=== PATIENT | male | born 1970 | race Caucasian/White ===

== ENCOUNTER 2022-03-16 20:54 | Emergency (ER) | payer MEDICAID, SELFPAY ==
[2022-03-16 21:06] VITALS: BP 150/83; PULSE 80; RESP 18; TEMP 36.7; O2SAT 99; BMI 35.1
--- OUTSIDE RECORDS SUMMARY | 2022-03-16 22:36 | XMS_ITS | Clinical Summary ---
:1970 Author Organization [facility] [place] [address] Care Team Providers Name Role Phone Jero Jeffers MD Primary Care Provider Allergies No known active allergies Medications Medication Sig Dispensed Refills Start Date End Date Status citalopram (CELEXA) Take 20 mg by mouth 0 Active 20 mg once daily. tabletIndications: Indications: depression associated DEPRESSION with bipolar disorder ASSOCIATED WITH BIPOLAR DISORDER ARIPIPRAZOLE (ABILIFY Take by mouth. 0 Active ORAL) divalproex (DEPAKOTE Take 1,500 mg by 0 Active ER) 500 mg mouth once daily. Extended-Release Indications: tabletIndications: BIPOLAR DISORDER IN bipolar disorder in REMISSION remission lisinopril (PRINIVIL; Take 40 mg by mouth 0 04/02/20 19 Active ZESTRIL) 40 mg tablet once daily. JANTOVEN 5 mg tablet 0 04/24/2019 Active Active Problems Problem Noted Date Bipolar I disorder, most recent episode (or current) d epressed, in full 12/31/2007 remission Bipolar I disorder, most recent episode (or current) u nspecified 08/12/2005 Depressive disorder, not elsewhere classified 05/23/19 06 Overview: ATYPICAL / ? BIPOLAR HX SUICIDAL IDEATIO N 07/06 Cervicalgia 05/23/2005 Immunizations Name Administration Dates Next Due Pneumococcal Poly,23-Valent (Pneumovax) 04/09/2014 Tdap 02/28/2012 Family History Medical History Relation Name Comments Arthritis Father GI Disease Father PUD Cancer Maternal Grandfather Cancer-colon Maternal Grandmother Asthma Mother Hypertension Mother Cancer Paternal Grandfather Diabetes Paternal Grandmother Good Health Sister 1 Good Health Sister 2 Relation Name Status Comments Father Alive Maternal Grandfather Maternal Grandmother Mother Alive Paternal Grandfather Paternal Grandmother Sister 1 Sister 2 Social History Tobacco Use Types Packs/Day Years Used Date Smoking Tobacco: Every Day Cigarettes 0.5 S tarted: 04/03/1985 Smokeless Tobacco: Never Tobacco Cessation: Ready to Quit: Yes; C ounseling Given: Yes Alcohol Use Standard Drinks/Week Comments Yes 0 (1 standard drink = 0.6 oz pure alcoho l) Sex Assigned at Date Recorded Not on file Obstetrics History Last Filed Vital Signs Vital Sign Reading Time Taken Comments Blood Pressure 124/80 05/06/2019 2:42 PM [employer] Pulse 72 05/06/2019 2:42 PM [employer] Temperature 36.7 ??C (98.1 ??F) 11/02/2015 1:52 PM CDT Respiratory Rate 18 05/06/2019 2:42 PM [employer] Oxygen Saturation 93% 11/02/2015 4:00 PM CDT Inhaled Oxygen Concentration - - Weight 107.9 kg (237 lb 12.8 oz) 05/06/2019 2:42 PM [employer] Height 177 cm (5' 9.69) 05/06/2019 2:42 PM [employer] Body Mass Index 34.43 05/06/2019 2:42 PM TOBACCO SAMPLE P[employer]ER Plan of Treatment Health Maintenance Due Date Last Done Comments COVID-19 vaccine series (#1) 1971 Depression screening for age 12+ 1983 HIV for age 15-65 1986 Hepatitis C screening for age 1203/07/1989 18-79 Colonoscopy through age 75 2016 Lipids for age 45-75 2016 05/15/2007, 03/30/2006, 03/30/2006, Additional history exists BMI (ht and wt on same day) for 05/06/2020 05/06/2019, 08/0 04/2015 age 18+ Zoster (shingles) series for age 1203/07/2021 50+ (1 of 2) Influenza for age 50-64 12/02/2021 Tetanus booster 02/27/2022 02/28/2012 Tdap Completed 02/28/2012 Results Not on filefrom Last 3 Months Care Teams Net Programmer Analyst Relationship Specialty Start Date End Date Jero Jeffers MD PCP - General Family Practice 11/02/15
[2022-03-16 22:58] LABS: Basophils Absolute Auto 0.03 K/uL (0.00-0.30); Basophils Percent Auto 0.3 % (0.0-3.0); Eosinophils Absolute Auto 0.15 K/uL (0.00-0.50); Eosinophils Percent Auto 1.7 % (0.0-7.0); Hematocrit 39.9 % (37.0-53.0); Hemoglobin* 13.7 gm/dL (13.5-17.5); Immature Granulocytes Abs Auto 0.04 K/uL (0.00-0.30); Immature Granulocytes Pct Auto 0.4 %; Lymphocytes Absolute Auto 3.43 K/uL (0.90-2.90); Lymphocytes Percent Auto 37.9 % (20-44); Mean Corpuscular HGB Conc 34 gm/dL (32-36); Mean Corpuscular Hemoglobin 31 pg (26-34); Mean Corpuscular Volume 91 fL (80-100); Monocytes Percent Auto 10.8 % (0.0-11.0); Neutrophils Absolute Auto 4.43 K/uL (1.7-7.0); Neutrophils Percent Auto 48.9 % (42.0-72.0); Platelet Count* 170 K/uL (140-440); RDW Coefficient of Variation % 13.9 % (11.5-15.5); White Blood Count* 9.06 K/uL (4.50-11.00)
[2022-03-16 23:05] LABS: Slide Review Reflex No
[2022-03-16 23:11] LABS: Chloride* 109 mmol/L (96-114); Sodium* 142 mmol/L (135-149)
[2022-03-16 23:12] LABS: Potassium* 3.9 mmol/L (3.6-5.1)
[2022-03-16 23:14] LABS: Creatinine* 0.7 mg/dL (0.5-1.5); Est. Creatinine Clearance* 132.97; Estimated Glomerular Filt Rate 112 ml/min
[2022-03-16 23:15] LABS: Blood Urea Nitrogen* 21 mg/dL (7-30); Calcium* 8.7 mg/dL (8.4-10.6); Carbon Dioxide* 26 mmol/L (20-32); Glucose* 95 mg/dL (60-115)
[2022-03-16 23:20] LABS: C Reactive Protein* < 0.5 mg/dL (0.5-1.0)
[2022-03-16 23:37] VITALS: BP 150/83; PULSE 80; RESP 18; TEMP 36.7
[2022-03-16 23:49] VITALS: BP 132/78; PULSE 79; RESP 18; TEMP 36.6; O2SAT 99
--- NOTE | 2022-03-17 00:15 | ED.GIBLEED ---
HPI - GI Bleed General Chief complaint: GI Bleed Stated complaint: Rectal Bleeding Time Seen by Provider: 03/16/22 21:08 History of Present Illness HPI Narrative: 52-year-old man presenting to the emergency department with concern of rectal bleeding. 3 small clots with wiping on bm today. unusual urge to have evening bm. last weekend partied. no regular excessive alcohol. Is not having abdominal pain at this time. Been no fever. No diarrhea. No shortness of breath or lightheadedness. Does not know himself to have a history of hemorrhoids. does have a history of pulmonary embolus and is anticoagulated with Coumadin. Related Data Home Medications Medication Instructions Recorded Confirmed citalopram 20 mg tablet 20 mg PO DAILY 12/03/21 03/17/22 lisinopril 40 mg tablet 40 mg PO DAILY 12/03/21 03/17/22 Previous Rx's Medication Instructions Recorded aripiprazole 30 mg tablet 30 mg PO QDAY #30 tabs 11/28/21 divalproex 500 mg tablet,delayed 2,500 mg PO DAILY #150 tabs 11/28/21 release warfarin 5 mg tablet (Jantoven) See Rx Instructions .Route 01/31/22 .COMPLEX #120 tabs peg 3350-electrolytes 236 240 ml PO Q10M #4,000 mL 03/17/22 gram-22.74 gram-6.74 gram-5.86 gram solution (Golytely) Allergies Allergy/AdvReac Type Severity Reaction Status Date / Time No Known Allergies Allergy Unknown Unverified 03/18/22 11:24 Review of Systems Status of ROS: Reports: 6 or more systems reviewed and unremarkable except as noted in History and below [facility] Medical History (Updated 03/17/22 @ 02:04 by Feliciano Jonas RN) Anxiety Bipolar disorder Gout H/O deep venous thrombosis HTN (hypertension) Lung nodule Osteoarthritis of knee Pulmonary embolism Sleep apnea Tobacco abuse Family History Other Diabetes Social History Smoking Status: Current every day smoker What tobacco products do you use: cigarettes Second hand tobacco smoke exposure: No How often do you have a drink containing alcohol: never How often do you have six or more drinks on one occasion: Never AUDIT-C Alcohol total score: 0 Non-prescribed substance use: denies use Exam Narrative: Exam Narrative: Pleasant. NAD. Jerry complected. Seems just a little bit distracted maybe tired. Breathing easily. Lungs are clear. Cardiovascular with regular rate and rhythm. Cranial nerves 2-12 look to be intact. Abdomen is soft little overweight nontender. Extremities without edema. Well perfused. I return to do an anoscopy exam. There is evidence of bright red bleeding on the anal tissue. Anoscopy exam though does not reveal any further bleeding nor any hemorrhoids. No indication of a fissure either. Const: Vital Signs, click to edit/add: Vital Signs - 24 hr 03/16/22 21:06 03/16/22 23:37 03/16/22 23:49 Temperature 98.0 F 98.0 F 97.9 F Pulse Rate [Right Pulse Oximeter] 80 80 79 Respiratory Rate 18 18 18 Blood Pressure [Ri ght Upper Arm] 150/83 H 150/83 H 132/78 Pulse Oximetry 99 99 Oxygen Delivery Me thod Room Air Room Air Documenting provider has reviewed patient's vital signs: yes Course Vital Signs Vital signs: Initial Vital Signs Temperature 98.0 F 03/16/22 21:06 Temperature Source Temporal Artery Scan 03/16/22 21:06 Pulse Rate 80 03/16/22 21:06 Respiratory Rate 18 03/16/22 21:06 Blood Pressure 150/83 H 03/16/22 21:06 Blood Pressure Mean 105 03/16/22 21:06 Blood Pressure Position Sitting 03/16/22 21:06 Pulse Oximetry 99 03/16/22 21:06 Oxygen Delivery Method 03/16/22 21:06 Vital Signs Temperature 98.0 F 03/16/22 21:06 Pulse Rate 80 03/16/22 21:06 Respiratory Rate 18 03/16/22 21:06 Blood Pressure 150/83 H 03/16/22 21:06 Pulse Oximetry 99 03/16/22 21:06 Oxygen Delivery Method 03/16/22 21:06 Temperature 97.9 F 03/16/22 23:49 Pulse Rate 79 03/16/22 23:49 Respiratory Rate 18 03/16/22 23:49 Blood Pressure 132/78 03/16/22 23:49 Pulse Oximetry 99 03/16/22 23:49 Oxygen Delivery Method 03/16/22 23:49 MDM - GI Bleed MDM Narrative Medical decision making narrative: Basic labs are completed. Reassuring hemoglobin at 13.7 and an INR was 1.8. This would be presumably a little subtherapeutic but given bleed here I think will let this go at the moment. Close follow-up. Was observed in the emergency department without further episodes of bleeding. No pain. Medical Records Attestation: I reviewed the patient's medical records. Lab Data Attestation: I reviewed the patient's lab results. Labs: Lab Results 03/16/22 03/16/22 Range/Units 22:50 22:50 WBC 9.06 (4.50-11.00) K/uL RBC 4.40 (4.30-5.90) m/uL Hgb 13.7 (13.5-17.5) gm/dL Hct 39.9 (37.0-53.0) % MCV 91 (80-100) fL MCH 31 (26-34) pg MCHC 34 (32-36) gm/dL RDW Coeff of Kaz 13.9 (11.5-15.5) % Plt Count 170 (140-440) K/uL Neut % (Auto) 48.9 (42.0-72.0) % Lymph % (Auto) 37.9 (20-44) % [place] % (Auto) 10.8 (0.0-11.0) % Eos % (Auto) 1.7 (0.0-7.0) % Baso % (Auto) 0.3 (0.0-3.0) % Neut # (Auto) 4.43 (1.7-7.0) K/uL Lymph # (Auto) 3.43 H (0.90-2.90) K/uL [place] # (Auto) 1.00 H (0.00-0.90) K/UL Eos # (Auto) 0.15 (0.00-0.50) K/uL Baso # (Auto) 0.03 (0.00-0.30) K/uL Abs Immat Gran (auto) 0.04 (0.00-0.30) K/uL Imm/Tot Granulo (auto) 0.4 % Sodium 142 (135-149) mmol/L Potassium 3.9 (3.6-5.1) mmol/L Chloride 109 (96-114) mmol/L Carbon Dioxide 26 (20-32) mmol/L BUN 21 (7-30) mg/dL Creatinine 0.7 (0.5-1.5) mg/dL Estimated Creat Clear 132.97 Estimated GFR 112 ml/min Glucose 95 (60-115) mg/dL Calcium 8.7 (8.4-10.6) mg/dL C-Reactive Protein < 0.5 L (0.5-1.0) mg/dL Discharge Plan Discharge Clinical Impression: Acute lower GI bleeding Patient Disposition: Home, Self-Care Condition: Stable Additional Instructions: Stay well-hydrated. I would take it easy with your diet over the next 36 hours. Maybe stick to things like diluted juices, soup broths advancing to thicker soups and maybe smoothies. Rice. Shorter. It is possible you might past few more small clots. That is okay. Return though for real increase in bleeding, marked increase in abdominal pain, associated fever, repeated vomiting, associated lightheadedness. I would follow-up though in primary care otherwise to get this colonoscopy scheduled as soon as possible. Prescriptions: No Action lisinopril 40 mg tablet 40 mg PO DAILY citalopram 20 mg tablet 20 mg PO DAILY divalproex 500 mg tablet,delayed release (DR/EC) 2,500 mg PO DAILY Qty: 150 11RF aripiprazole 30 mg tablet 30 mg PO QDAY Qty: 30 11RF warfarin [Jantoven] 5 mg tablet See Rx Instructions .ROUTE .COMPLEX Qty: 120 3RF Dose Instruction: SUN 7.5 MG, MONDAY 5MG, MON 7.5MG, MON 7.5MG, TH 7.5MG, MON 5MG, SAT 7.5 MG Rx Instructions: SUN 7.5 MG, MONDAY 5MG, MON 7.5MG, MON 7.5MG, THUR 7.5MG, FRI 5MG, SAT 7.5 MG peg 3350-electrolytes [Golytely] 236-22.74-6.74 -5.86 gram recon soln 240 ml PO Q10M Qty: 4000 0RF Rx Instructions: until fecal effluent is clear Follow Up/Referrals: Jero Jeffers MD [Primary Care Provider] - Stand Alone [facility]
== END 2022-03-16 23:40 | disposition home or self-care (01) ==
PROVIDERS: Emergency Provider Family Medicine; PCP Family Medicine
DX: K62.5 Hemorrhage of anus and rectum (principal); Z86.711 Personal history of pulmonary embolism; Z79.01 Long term (current) use of anticoagulants
CPT/HCPCS: 36415; 80048; 85025; 86140; 99283; 99284

== ENCOUNTER 2022-04-05 11:34 | Outpatient (CLI) | payer MEDICAID, SELFPAY | END 2022-04-05 11:35 | disposition home or self-care (01) | LOC: OP CLINIC 11:35 | PROVIDERS: PCP Family Medicine; Visit Provider Surgery | DX: K92.1 Melena (principal); K64.8 Other hemorrhoids; K62.89 Other specified diseases of anus and rectum | CPT/HCPCS: 36415; 45380; 85610; 88305; 99153; J2250; J3010 ==

== ENCOUNTER 2022-07-22 08:31 | Outpatient (CLI) | payer MEDICAID, SELFPAY | END 2022-07-22 08:32 | disposition home or self-care (01) | PROVIDERS: PCP Family Medicine; Visit Provider Family Medicine | DX: Z00.00 Encounter for general adult medical examination without abnormal findings (principal); I10 Essential (primary) hypertension; Z13.6 Encounter for screening for cardiovascular disorders; Z12.5 Encounter for screening for malignant neoplasm of prostate | CPT/HCPCS: 80061; 84153 ==

== ENCOUNTER 2022-09-28 09:53 | Outpatient (CLI) | payer MEDICAID, SELFPAY | END 2022-09-28 09:54 | disposition home or self-care (01) | LOC: NFLDREF 09-29 07:43 | PROVIDERS: PCP Family Medicine; Referring Provider Family Medicine; Visit Provider Family Medicine | DX: Z86.718 Personal history of other venous thrombosis and embolism (principal) | CPT/HCPCS: 85610 ==

== ENCOUNTER 2022-10-21 15:11 | Outpatient (CLI) | payer MEDICAID, SELFPAY | END 2022-10-21 15:12 | disposition home or self-care (01) | LOC: LONREF 15:15 | PROVIDERS: PCP Family Medicine; Visit Provider Family Medicine | DX: Z01.818 Encounter for other preprocedural examination (principal) | CPT/HCPCS: 80048 ==

== ENCOUNTER 2022-11-15 11:07 | Day surgery (SDC) | payer MEDICAID, SELFPAY ==
[2022-11-15] VITALS (7 sets, daily range): BP systolic 105–122; BP diastolic 67–85; PULSE 48–59; RESP 16; TEMP 36.1–37; O2SAT 96–98; BMI 35.6
[2022-11-15] MEDS: SODIUM CHLORIDE 0.9 % (FLUSH) 10 ML SYRINGE IVF (11:40)
[2022-11-15] MEDS: LACTATED RINGERS 1000 ML 1,000 ML 100 ML IV (11:40)
[2022-11-15] MEDS: CEFAZOLIN 2 GM INJ IVP (13:02)
[2022-11-15] MEDS: BUPIVACAINE 0.25% 30 ML INJECTION (13:10)
--- NOTE | 2022-11-15 13:35 | P.GSOP_ITS ---
Operative Note Pre-op diagnosis: 1. Recurrent right periductal mastitis. Post-op diagnosis: 1. Right periductal mastitis with an abscess. Type of Procedure: 1. Excision of right nipple areolar complex with partial closure. Indications: 52-year-old male smoker was seen in clinic multiple times with right periductal mastitis. He completed several courses of antibiotics. He initially underwent aspiration of a magdalena areolar abscess with minimal amount of purulent drainage aspirated. Patient's infection initially improved with antibiotics but never went away and recurred multiple times. On clinical exam patient had induration just medial to the right nipple with faint erythema. There was no obvious abscess noted. Given patient's clinical history and his recurrent episodes of mastitis, radial excision of the nipple and areola versus excision of nipple- areolar complex were all discussed with the patient. The procedures were discussed in detail. The risks associated procedures including infection, recurrence of symptoms, and bleeding were discussed with the patient, and he agreed to proceed with excision of nipple-areolar complex. Procedure Description: After discussing the risks and benefits of the procedure, the patient signed informed consent.? The operative site was marked and the patient was brought to the operating room and placed on the operating table in supine position.? Care was taken to pad the patient's pressure points.?? The patient was then sedated by anesthesia.?? The operative site was then prepped and draped in the usual sterile fashion.? A time-out was then performed. Local anesthetic was injected around the right nipple-areolar complex. A horizontal elliptical skin incision was made with a scalpel around the nipple- areolar complex. Dermis was divided with cautery. This dissection was carried down to the breast fat. Purulence was noted to come out at the inferior edge of the incision. This was approximately 1 mL. The nipple-areolar complex with associated abscess was then excised with cautery. The margins were inked for orientation and the right nipple-areolar complex was sent to pathology. The incision was irrigated with normal saline. Additional local anesthetic was injected in the incision. Skin flaps were developed superiorly and inferiorly. The breast tissue was then reapproximated with interrupted 2-0 Vicryl sutures. The dermis was then reapproximated with interrupted 3-0 Vicryl sutures. The medial 1.5 cm of the surgical incision was left open. The skin of the remainder of the incision was closed with a running 4-0 Monocryl stitch. The open part of the surgical incision medially was then packed with iodoform Nu Gauze. The incision was covered with sterile gauze and tape. ? The patient was then woken and transported to the recovery area in stable condition. ? The patient tolerated the procedure well. Findings: Periductal mastitis with associated small abscess. Anesthesia: GETA Surgeon: Julianna Connor MD Estimated blood loss (mL): 5 Additional Specimen Information: 1. Right nipple-areolar complex. Condition: stable Disposition: same day
--- NOTE | 2022-11-15 13:45 | W.ANESCHARGE ---
Anesthesia Charges Start Date/Time Anesthesia Start Date: 11/15/22 Anesthesia Start Time: 12:53 Stop Date/Time Anesthesia Stop Date: 11/15/22 Anesthesia Stop Time: 13:39
--- NOTE | 2022-11-15 13:51 | W.ANESCHARGE ---
Anesthesia Charges Start Date/Time Anesthesia Start Date: 11/15/22 Anesthesia Start Time: 12:53 Stop Date/Time Anesthesia Stop Date: 11/15/22 Anesthesia Stop Time: 13:39
== END 2022-11-15 14:40 | disposition home or self-care (01) ==
PROVIDERS: PCP Family Medicine; Visit Provider Surgery
PROC: (CPT 19120; principal; 2022-11-15 12:30)
DX: N61.1 Abscess of the breast and nipple (principal)
CPT/HCPCS: 19120; 400; 88307; J0665; J0690; J1100; J2250; J2405; J2704; J3010; J3490; J7120

== ENCOUNTER 2023-07-21 20:57 | Emergency (ER) | payer MEDICAID, SELFPAY ==
[2023-07-21 21:03] VITALS: BP 138/85; PULSE 75; RESP 16; TEMP 36.4; O2SAT 98; BMI 35.6
--- NOTE | 2023-07-21 21:13 | ED.GENADULT ---
HPI - General Adult General Chief complaint: Abdominal Pain Stated complaint: Abdominal pain Time Seen by Provider: 07/21/23 21:02 History of Present Illness HPI narrative: nausea and loose stools all week, about 1 hour ago burped up stomach acid, that was bright red and bloody denies hx of similar events, denies hx bleeding ulcers . patient takes warfarin for hx of DVT/PE. patient reports he may have had a fever monday because he was feeling chills, today denies fevers. patient denies lavon bleeding in stools but has been taking Pepto so his stool are black . reports generalized discomfort in abd. Feels kind of queasy denies any localized pain. 53-year-old man presenting to the emergency department with concern of abdominal pain. Does appear though that primary concern was that he had burped up some ?red and bloody? stomach content. He is worried he might have an ulcer. He is still nauseated. Has actually been having loose diarrheal stools throughout this week. No melena or hematochezia although did take some Pepto resulting in some dark stool. No fever. No rashes. Does take Coumadin with a history of DVT. On measured temperature at least 3 days ago when he felt chilled. No shortness of breath. Related Data Previous Rx's Medication Instructions Recorded enoxaparin 30 mg/0.3 mL 30 mg (0.3 mL) subcut Q12H #6 mL 10/26/22 subcutaneous syringe (Lovenox) aripiprazole 30 mg tablet 30 mg PO QDAY #30 tabs 11/29/22 divalproex 500 mg tablet,delayed 2,500 mg (5 x 500 mg) PO DAILY 11/29/22 release #150 tabs citalopram 20 mg tablet 20 mg PO QDAY #90 tabs 04/04/23 lisinopril 40 mg tablet 40 mg PO DAILY #90 tabs 04/19/23 warfarin 5 mg tablet See Rx Instructions PO .COMPLEX 04/19/23 #90 tabs Allergies Allergy/AdvReac Type Severity Reaction Status Date / Time No Known Allergies Allergy Unknown Verified 03/10/23 13:07 Review of Systems Status of ROS: Reports: 6 or more systems reviewed and unremarkable except as noted in History and below [facility] Medical History Mastitis ?N61.0 - Mastitis without abscess (ICD-10) Lung nodule ?R91.1 - Solitary pulmonary nodule (ICD-10) Surgical History S/P breast biopsy, right ?Z98.890 - Other specified postprocedural states (ICD-10) Family History Other Diabetes Social History What is your current living situation?: I presently have a place to live Problems where you live: no known problems Problems where you live details: NA In the past 12 months, utilities in danger of being shut off: no In past 12 months, lack of transportation kept you from medical appts, meetings, work, or getting things needed for daily living: no In the past 12 mos, have been you worried that your food would run out before you had money to buy more?: never true In the past 12 mos, the food you bought just didn't last and you didn't have money to buy more?: never true Highest level of school completed/degree received: some college, no degree Smoking Status: Current every day smoker What tobacco products do you use: cigarettes Smoking packs per day: 0.5 Smoking cigarettes per day: 10.0 Years smoked: 35 Smoking pack-years: 17.50 Do you use any of these nicotine containing products: None Second hand tobacco smoke exposure: Yes How often do you have a drink containing alcohol: 4 or more times a week Alcohol type: beer How many standard drinks containing alcohol do you have on a typical day: 1 or 2 How often do you have six or more drinks on one occasion: Never AUDIT-C Alcohol total score: 4 Non-prescribed substance use: denies use Caffeine: Yes (COFFEE) How often does anyone, including family, friends and others, physically hurt you: never How often does anyone, including family, friends and others, insult or talk down to you: never How often does anyone, including family, friends and others, threaten you with harm: never How often does anyone, including family, friends and others, scream or curse at you: never Little interest or pleasure in doing things: several days Feeling down, depressed, or hopeless: not at all service: No Exam Narrative: Exam Narrative: Pleasant. Calm. Blunted affect. Jerry complexion over his face breathing easily. Oropharynx is a little sticky. No evidence of blood at this time. Skin otherwise warm and dry. Is well-perfused. Moving all extremities without difficulty. Lungs are clear. Heart in regular rate and rhythm. Abdomen is soft. Present bowel sounds. Does not appear particularly tender. Certainly no peritoneal signs. Const: Vital Signs, click to edit/add: Vital Signs - 24 hr 07/21/23 21:03 Temperature 97.6 F Pulse Rate [Pulse Oximeter] 75 Respiratory Rate 16 [facility] 138/85 Pulse Oximetry 98 Oxygen Delivery Me thod Room Air Documenting provider has reviewed patient's vital signs: yes Course Vital Signs Vital signs: Initial Vital Signs Temperature 97.6 F 07/21/23 21:03 Temperature Source Temporal Artery Scan 07/21/23 21:03 Pulse Rate 75 07/21/23 21:03 Respiratory Rate 16 07/21/23 21:03 Blood Pressure 138/85 07/21/23 21:03 Blood Pressure Mean 102 07/21/23 21:03 Blood Pressure Position Sitting 07/21/23 21:03 Pulse Oximetry 98 07/21/23 21:03 Oxygen Delivery Method Room Air 07/21/23 21:03 Vital Signs Temperature 97.6 F 07/21/23 21:03 Pulse Rate 75 07/21/23 21:03 Respiratory Rate 16 07/21/23 21:03 Blood Pressure 138/85 07/21/23 21:03 Pulse Oximetry 98 07/21/23 21:03 Oxygen Delivery Method Room Air 07/21/23 21:03 Temperature 98.0 F 07/21/23 23:51 Pulse Rate 74 07/21/23 23:00 Respiratory Rate 16 07/21/23 23:00 Blood Pressure 138/74 07/21/23 23:00 Pulse Oximetry 98 07/21/23 23:00 Oxygen Delivery Method Room Air 07/21/23 23:00 Medications Administered Medications: Discontinued Medications Generic Name Dose Route Start Last Admin Trade Name Freq PRN Reason Stop Dose Admin Sodium Chloride 1,000 mls @ 1,000 mls/hr 07/21/23 21:29 07/21/23 21:30 0.9 % Sodium Chloride 1000 Ml IV 07/21/23 22:28 1,000 mls/hr .Q1H ONE Administration Ondansetron HCl 4 mg 07/21/23 21:29 07/21/23 23:35 Ondansetron 2 Mg/Ml Inj IVP 07/21/23 21:30 4 mg ONCE ONE Administration Medical Decision Making MDM Narrative Medical decision making narrative: Seems to be having some lingering gastroenteritis picture. Does not sound as though has a history of bleed. I am not sure what to make of the reported red spit-up/vomitus. I think would need baseline labs and monitor for further at this time. Labs and hemoglobin then would be collected about 3 hours I think after this event. Certainly check gastroccult if he produces more. Hemoccult of possible as well. He would appreciate something for nausea. Will hydrate. IV hydration and Zofran. On reassessment is feeling fairly well. Labs are reassuring with a hemoglobin of 14.4. White count normal. Little subtherapeutic with INR. No further events. I think can safely be discharged. Abdomen still without significant pain; no localizing discomfort See patient discharge plan for further discussion. Will need follow up for INR level but would hold on increasing dosing for a couple of days. This is not anticoagulation for atrial fibrillation or cardiac condition otherwise but for DVT and has been anti coagulated for some time. Lab Data Lab results reviewed: Yes I reviewed the patient's lab results Labs: Lab Results 07/21/23 07/21/23 Range/Units 22:10 22:18 WBC 9.24 (4.50-11.00) K/uL RBC 4.69 (4.30-5.90) m/uL Hgb 14.4 (13.5-17.5) gm/dL Hct 41.8 (37.0-53.0) % MCV 89 (80-100) fL MCH 31 (26-34) pg MCHC 34 (32-36) gm/dL RDW Coeff of Kaz 13.5 (11.5-15.5) % Plt Count 189 (140-440) K/uL Neut % (Auto) 45.6 (42.0-72.0) % Lymph % (Auto) 43.8 (20-44) % Randolph % (Auto) 7.4 (0.0-11.0) % Eos % (Auto) 2.2 (0.0-7.0) % Baso % (Auto) 0.2 (0.0-3.0) % Neut # (Auto) 4.22 (1.7-7.0) K/uL Lymph # (Auto) 4.05 H (0.90-2.90) K/uL Randolph # (Auto) 0.70 (0.00-0.90) K/UL Eos # (Auto) 0.20 (0.00-0.50) K/uL Baso # (Auto) 0.02 (0.00-0.30) K/uL Abs Immat Gran (auto) 0.07 (0.00-0.30) K/uL Imm/Tot Granulo (auto) 0.8 % INR 1.76 H (0.91-1.10) Sodium 138 (135-149) mmol/L Potassium 3.4 L (3.6-5.1) mmol/L Chloride 113 (96-114) mmol/L Carbon Dioxide 22 (20-32) mmol/L Anion Gap 3 L (7-15) mEq/L BUN 14 (7-30) mg/dL Creatinine 0.6 (0.5-1.5) mg/dL Estimated Creat Clear 153.39 Estimated GFR 116 ml/min Glucose 75 (60-115) mg/dL Lactate 1.0 (0.5-1.9) mmol/L Calcium 8.0 L (8.4-10.6) mg/dL C-Reactive Protein < 0.5 L (0.5-1.0) mg/dL Discharge Plan Discharge Clinical Impression: Anticoagulated, Vomiting Patient Disposition: Home, Self-Care Condition: Improved Additional Instructions: Focus on hydration. Slow advance of diet over the next 24-36 hours. Diluted juices, soup broths, rice, crackers, toast. Your INR today was 1.76. Given that you reported this blood in your vomit, I am a little hesitant to tell you to increase the dosing right now but it does look as though you need to have this adjusted. Let's get through the weekend and then call to your clinic for their assistance in adjusting medication. Return for repeated vomiting, marked increase in persistent abdominal pain, associated fever. Navid from [facility] Prescriptions: No Action enoxaparin [Lovenox] 30 mg/0.3 mL syringe 30 mg subcut Q12H Qty: 6 0RF Hold Instructions: Resume on 11/16/22. Rx Instructions: start Lovenox 24 hrs after holding Coumadin. Take 1 shot every 12 hrs. Hold Lovenox 24 hrs prior to surgery aripiprazole 30 mg tablet 30 mg PO QDAY Qty: 30 11RF divalproex 500 mg tablet,delayed release (DR/EC) 2,500 mg PO DAILY Qty: 150 11RF citalopram 20 mg tablet 20 mg PO QDAY Qty: 90 3RF lisinopril 40 mg tablet 40 mg PO DAILY Qty: 90 3RF warfarin 5 mg tablet See Rx Instructions PO .COMPLEX Qty: 90 5RF Protocol: Dose Management Condition: Monday Dose/Route: 7.5 mg Instruction: 1.5 x 5 mg tablets Condition: Monday Dose/Route: 5 mg Instruction: 1 x 5 mg tablet Condition: Monday Dose/Route: 7.5 mg Instruction: 1.5 x 5 mg tablets Condition: Monday Dose/Route: 7.5 mg Instruction: 1.5 x 5 mg tablets Condition: Dose/Route: 7.5 mg Instruction: 1.5 x 5 mg tablets Condition: Monday Dose/Route: 5 mg Instruction: 1 x 5 mg tablet Condition: Monday Dose/Route: 7.5 mg Instruction: 1.5 x 5 mg tablets Protocol Text: Adjustment Start Date: Monday03/10/23 INR Value: 2.8 INR Date: 03/10/23 Recheck Date: 05/09/23 Rx Instructions: 5mg orally Monday and Monday; 7.5mg Mon, , Mon, , and Monday Follow Up/Referrals: Jero Jeffers MD [Primary Care Provider] - Stand Alone Forms: [employer] Info Instructions
[2023-07-21] MEDS: 0.9 % SODIUM CHLORIDE 1000 ml 1,000 ML IV (21:30)
[2023-07-21 22:29] LABS: Basophils Absolute Auto 0.02 K/uL (0.00-0.30); Basophils Percent Auto 0.2 % (0.0-3.0); Eosinophils Percent Auto 2.2 % (0.0-7.0); Hematocrit 41.8 % (37.0-53.0); Hemoglobin* 14.4 gm/dL (13.5-17.5); Immature Granulocytes Abs Auto 0.07 K/uL (0.00-0.30); Immature Granulocytes Pct Auto 0.8 %; Lymphocytes Absolute Auto 4.05 K/uL (0.90-2.90); Lymphocytes Percent Auto 43.8 % (20-44); Mean Corpuscular HGB Conc 34 gm/dL (32-36); Mean Corpuscular Hemoglobin 31 pg (26-34); Mean Corpuscular Volume 89 fL (80-100); Monocytes Percent Auto 7.4 % (0.0-11.0); Neutrophils Absolute Auto 4.22 K/uL (1.7-7.0); Neutrophils Percent Auto 45.6 % (42.0-72.0); Platelet Count* 189 K/uL (140-440); RDW Coefficient of Variation % 13.5 % (11.5-15.5); Red Blood Count 4.69 m/uL (4.30-5.90); White Blood Count* 9.24 K/uL (4.50-11.00)
[2023-07-21 22:30] LABS: Slide Review Reflex No
[2023-07-21 22:41] LABS: Chloride* 113 mmol/L (96-114); Potassium* 3.4 mmol/L (3.6-5.1); Sodium* 138 mmol/L (135-149)
[2023-07-21 22:44] LABS: Creatinine* 0.6 mg/dL (0.5-1.5); Est. Creatinine Clearance* 153.39; Estimated Glomerular Filt Rate 116 ml/min
[2023-07-21 22:45] LABS: Anion Gap 3 mEq/L (7-15); Blood Urea Nitrogen* 14 mg/dL (7-30); Carbon Dioxide* 22 mmol/L (20-32); Glucose* 75 mg/dL (60-115)
[2023-07-21 22:51] LABS: C Reactive Protein* < 0.5 mg/dL (0.5-1.0)
[2023-07-21 22:53] LABS: INR 1.76 (0.91-1.10); Prothrombin Time 21.8 Seconds
[2023-07-21 23:00] VITALS: BP 138/74; PULSE 74; RESP 16; O2SAT 98
[2023-07-21] MEDS: ONDANSETRON 2 MG/ML inj 4 MG IVP (23:35)
--- OUTSIDE RECORDS SUMMARY | 2023-07-21 23:47 | XMS_ITS | Clinical Summary ---
Author Name Unknown Organization [employer] [facility] Address [place], [place] [address] Care Team Providers Care Water Softener Service Supervisor Name Role Phone Jero Jeffers MD Primary Care Provider [phone] Allergies No known active allergies Medications Medication Sig Dispensed Refills Start Date End Date Status citalopram (CELEXA) 20 mg tabletIndications:de pression associated with bipolar disorder Take 20 mg by mouth once daily. Indications: DEPRESSION ASSOCIATED WITH BIPOLAR DISORDER Active ARIPIPRAZOLE (ABILIFY ORAL) Take by mouth. Active divalproex (DEPAKOTE ER) 500 mg Extended-Release tabletIndications:bi polar disorder in remission Take 1,500 mg by mouth once daily. Indications: BIPOLAR DISORDER IN REMISSION Active lisinopril (PRINIVIL; ZESTRIL) 40 mg tablet Take 40 mg by mouth once daily. 04/02/2019 Active JANTOVEN 5 mg tablet 04/24/2019 Acti ve Active Problems Problem Noted Date Diagnosed Date Bipolar I disorder, most rec ent episode (or current) depressed, in full remission 12/31/2007 Bipolar I disorder, most rec ent episode (or current) unspecified 08/12/2005 Depressive disorder, not elsewhere classified Overview: ATYPICAL / ? BIPOLAR HX SUICIDAL IDEATION 07/06 Cervicalgia 05/23/2005 Immunizations Name Administration Dates Next Due Pneumococcal Poly,23-Valent (Pneumovax) 04/09/19 15 Tdap 02/28/2012 Family History Medical History Relation [...] Date Smoking Tobacco: Every Day Cigarettes 0.5 38.3 Started: 04/03/1985 Smokeless Tobacco: Never Tobacco Cessation:Ready to Q uit: Yes; Counseling Given: Yes Alcohol Use Standard Drinks/Week Comments Yes 0 (1 standard drink = 0.6 oz pur e alcohol) Social Connections Answer Date Recorded Frequency of Communication with Friends and Fami ly Not on file 03/25/2021 Financial Resource Strain Answer Date R ecorded Difficulty of Paying Living Expenses Not on file 03/25/2021 Difficulty of Paying Living Expenses Not on file 03/25/2021 Sex and Gender Information Value Date Recorded Sex Assigned at Not on file Gender Identity Not on file Sexual Orientation Not on file Obstetrics History Last Filed Vital Signs Vital Sign Reading Time Taken Comments Blood Pressure 124/80 05/06/2019 2:42 PM SENIOR CONSULTING MANAGER Pulse 72 05/06/2019 2:42 PM SENIOR CONSULTING MANAGER Temperature 36.7 ??C (98.1 ??F) 11/02/2015 1:52 PM CD T Respiratory Rate 18 05/06/2019 2:42 PM SENIOR CONSULTING MANAGER Oxygen Saturation 93% 11/02/2015 4:00 PM CDT Inhaled Oxygen Concentration - - Weight 107.9 kg (237 lb 12.8 oz) 05/06/2019 2:42 PM SENIOR CONSULTING MANAGER Height 177 cm (5' 9.69) 05/06/2019 2:42 PM SENIOR CONSULTING MANAGER Body Mass Index 34.43 05/06/2019 2:42 PM SENIOR CONSULTING MANAGER Plan of Treatment Health Maintenance Due Date Last Done Comments Depression screening for age 12+ 1983 HIV for age 15-65 1986 Hepatitis C screening for age 18-79 1989 Colonoscopy through age 75 2016 Lipids for age 45-75 2016 05/15/2007, 03/30/2006, 03/30/2006, Additional history exists BMI (ht and wt on same day) for age 18+ 05/06/2020 05/06/2019, 11/02/2015 Zoster (shingles) series for age 50+ (1 of 2) 2021 Tetanus booster 02/27/2022 02/28/2012 COVID-19 vaccine series (2022-24 season) 2022 Influenza for age 50-64 12/03/2023 Tdap Completed 02/28/2012 Pneumococcal series for age 6-64 Aged Out 04/09/2014 No longer eligible based on patient's age to complete this topic Procedures Procedure Name Priority Date/Time Associated Diagnosis Comments LIPID PANEL Timed 05/15/2007 4:25 PM SENIOR CONSULTING MANAGER Bipolar I Disorder, Recent/Current Episode from Last 3 Months or Most Recently Relevant to Health Maintenance Results * LIPID PANEL (05/15/2007 4:25 PM SENIOR CONSULTING MANAGER) CHOLESTEROL,TOTAL 168 110 - 199 mg/dL [facility] TRIGLYCERIDES 62 40 - 149 mg/dL [facility] HDL CHOLESTEROL 76 >40 mg/dL [facility] CHOL/HDL RATIO 2.21 <4.51 [facility] LDL CHOLESTEROL 80 <131 mg/dL [facility] PATIENT STATUS Fasting [facility] Blood specimen (specimen) BLOOD SPECIMEN / Unknown 05/15/2007 4:25 PM SENIOR CONSULTING MANAGER 05/15/2007 4:23 PM SENIOR CONSULTING MANAGER Nancy Muller BEHAVIORAL SCIENCE CHAIR CHEMISTRY [facility] [place]NAL ZIP [address] [id number] [place] [id number] from Last 3 Months or Most Recently Relevant to Health Maintenance Care Teams Water Softener Service Supervisor Relationship Specialty Start Date End Date Jero Jeffers MD PCP - General Family Practice 11/02/15
[2023-07-21 23:51] VITALS: TEMP 36.7
== END 2023-07-21 23:53 | disposition home or self-care (01) ==
LOC: ED 23:45
PROVIDERS: Emergency Provider Family Medicine; PCP Family Medicine
DX: R11.10 Vomiting, unspecified (principal); Z79.01 Long term (current) use of anticoagulants
CPT/HCPCS: 36415; 80048; 83605; 85025; 85610; 86140; 96374; 99283; 99284; J2405; J7030

== ENCOUNTER 2023-10-02 16:24 | Outpatient (CLI) | payer MEDICAID, SELFPAY ==
--- OUTSIDE RECORDS SUMMARY | 2023-10-02 16:26 | XMS_ITS | Clinical Summary ---
Author Organization [employer] [facility] Address [place], [place] [address] Care Team Providers Care Human Resources Partner Name Role Phone Jero Jeffers MD Primary Care Provider [phone] Allergies No known active allergies Medications Medication [...] Date Smoking Tobacco: Every Day Cigarettes 0.5 38.5 Started: 04/03/1985 Smokeless Tobacco: Never Tobacco Cessation:Ready [...] Comments Blood Pressure 124/80 05/06/2019 2:42 PM DEMONSTRATOR SALES Pulse 72 05/06/2019 2:42 PM DEMONSTRATOR SALES Temperature 36.7 ??C (98.1 ??F) 11/02/2015 1:52 PM CD T Respiratory Rate 18 05/06/2019 2:42 PM DEMONSTRATOR SALES Oxygen Saturation 93% 11/02/2015 4:00 PM CDT Inhaled Oxygen Concentration - - Weight 107.9 kg (237 lb 12.8 oz) 05/06/2019 2:42 PM DEMONSTRATOR SALES Height 177 cm (5' 9.69) 05/06/2019 2:42 PM DEMONSTRATOR SALES Body Mass Index 34.43 05/06/2019 2:42 PM DEMONSTRATOR SALES Plan of Treatment Health Maintenance Due Date [...] Comments LIPID PANEL Timed 05/15/2007 4:25 PM DEMONSTRATOR SALES Bipolar I Disorder, Recent/Current Episode from Last 3 Months or Most Recently Relevant to Health Maintenance Results * LIPID PANEL (05/15/2007 4:25 PM DEMONSTRATOR SALES) CHOLESTEROL,TOTAL 168 110 - 199 mg/dL [facility] TRIGLYCERIDES 62 40 - 149 mg/dL [facility] HDL CHOLESTEROL 76 >40 mg/dL [facility] CHOL/HDL RATIO 2.21 <4.51 [facility] LDL CHOLESTEROL 80 <131 mg/dL [facility] PATIENT STATUS Fasting [facility] Blood specimen (specimen) BLOOD SPECIMEN / Unknown 05/15/2007 4:25 PM DEMONSTRATOR SALES 05/15/2007 4:23 PM DEMONSTRATOR SALES Nancy Muller WEATHER STRIP MECHANIC CHEMISTRY [facility] INTERNAL ZIP [phone] [address] from Last 3 Months or Most Recently Relevant to Health Maintenance Care Teams Human Resources Partner Relationship Specialty Start Date End Date Jero Jeffers MD PCP - General Family Practice 11/02/15
== END 2023-10-02 16:25 | disposition home or self-care (01) ==
LOC: LKVREF 16:25
PROVIDERS: PCP Family Medicine; Visit Provider Family Medicine
DX: I10 Essential (primary) hypertension (principal)
CPT/HCPCS: 80048

== ENCOUNTER 2023-11-24 08:15 | Outpatient (CLI) | payer MEDICAID, SELFPAY ==
--- OUTSIDE RECORDS SUMMARY | 2023-11-24 08:19 | XMS_ITS | Clinical Summary ---
Author Organization [employer] [facility] Address [place], [place] [address] Care Team Providers Care Patient Accounts Specialist Name Role Phone Jero Jeffers MD Primary Care Provider [phone]- [phone] Allergies No known active allergies Medications Medication [...] Date Smoking Tobacco: Every Day Cigarettes 0.5 38.6 Started: 04/03/1985 Smokeless Tobacco: Never Tobacco Cessation:Ready [...] Comments Blood Pressure 124/80 05/06/2019 2:42 PM RESERVOIR ENGINEER Pulse 72 05/06/2019 2:42 PM RESERVOIR ENGINEER Temperature 36.7 ??C (98.1 ??F) 11/02/2015 1:52 PM CD T Respiratory Rate 18 05/06/2019 2:42 PM RESERVOIR ENGINEER Oxygen Saturation 93% 11/02/2015 4:00 PM CDT Inhaled Oxygen Concentration - - Weight 107.9 kg (237 lb 12.8 oz) 05/06/2019 2:42 PM RESERVOIR ENGINEER Height 177 cm (5' 9.69) 05/06/2019 2:42 PM RESERVOIR ENGINEER Body Mass Index 34.43 05/06/2019 2:42 PM RESERVOIR ENGINEER Plan of Treatment Health Maintenance Due Date [...] Comments LIPID PANEL Timed 05/15/2007 4:25 PM RESERVOIR ENGINEER Bipolar I Disorder, Recent/Current Episode from Last 3 Months or Most Recently Relevant to Health Maintenance Results * LIPID PANEL (05/15/2007 4:25 PM RESERVOIR ENGINEER) CHOLESTEROL,TOTAL 168 110 - 199 mg/dL TRIGLYCERIDES 62 40 - 149 mg/dL HDL CHOLESTEROL 76 >40 mg/dL [facility] CHOL/HDL RATIO 2.21 <4.51 [facility] LDL CHOLESTEROL 80 <131 mg/dL PATIENT STATUS Fasting [facility] Blood specimen (specimen) BLOOD SPECIMEN / Unknown 05/15/2007 4:25 PM RESERVOIR ENGINEER 05/15/2007 4:23 PM RESERVOIR ENGINEER Nancy Muller PERFORMANCE MAKEUP ARTIST CHEMISTRY [facility] INTERNAL ZIP [phone] [address] from Last 3 Months or Most Recently Relevant to Health Maintenance Care Teams Patient Accounts Specialist Relationship Specialty Start Date End Date Jero Jeffers MD PCP - General Family Practice 11/02/15
== END 2023-11-24 08:16 | disposition home or self-care (01) ==
PROVIDERS: PCP Family Medicine; Visit Provider Family Medicine
DX: Z00.00 Encounter for general adult medical examination without abnormal findings (principal); I10 Essential (primary) hypertension; F31.78 Bipolar disorder, in full remission, most recent episode mixed; Z13.6 Encounter for screening for cardiovascular disorders; Z12.5 Encounter for screening for malignant neoplasm of prostate; Z86.718 Personal history of other venous thrombosis and embolism
CPT/HCPCS: 80053; 80061; G0103

== ENCOUNTER 2024-10-11 08:30 | Outpatient (CLI) | payer OTHER, SELFPAY | END 2024-10-11 08:31 | disposition home or self-care (01) | LOC: FRMREF 08:31 | PROVIDERS: PCP Family Medicine; Visit Provider Nurse Practitioner Family | DX: M10.9 Gout, unspecified (principal) | CPT/HCPCS: 84550 ==

== ENCOUNTER 2024-10-18 09:13 | Outpatient (CLI) | payer OTHER, SELFPAY | END 2024-10-18 09:14 | disposition home or self-care (01) | LOC: NFLDREF 10-20 06:07 | PROVIDERS: PCP Family Medicine; Referring Provider Family Medicine; Visit Provider Family Medicine | DX: M25.579 Pain in unspecified ankle and joints of unspecified foot (principal) | CPT/HCPCS: 86200; 86431; 86618 ==

== ENCOUNTER 2024-10-27 11:37 | Outpatient (CLI) | payer OTHER, SELFPAY | END 2024-10-27 11:38 | disposition home or self-care (01) | LOC: NFLDREF 10-31 10:49 | PROVIDERS: PCP Family Medicine; Referring Provider Family Medicine; Visit Provider Family Medicine | DX: M25.571 Pain in right ankle and joints of right foot (principal) | CPT/HCPCS: 84560 ==

== ENCOUNTER 2024-12-20 09:48 | Outpatient (CLI) | payer OTHER, SELFPAY | END 2024-12-20 09:49 | disposition home or self-care (01) | PROVIDERS: PCP Family Medicine; Visit Provider Family Medicine | DX: I10 Essential (primary) hypertension (principal); Z13.6 Encounter for screening for cardiovascular disorders | CPT/HCPCS: 80048; 80061 ==